=== PATIENT | male | born 1990 | race Caucasian/White ===

== ENCOUNTER 2023-09-20 11:12 | Emergency (ER) | payer OTHER, SELFPAY ==
[2023-09-20 11:14] VITALS: BP 132/82; PULSE 79; RESP 15; TEMP 36.6; O2SAT 97; BMI 27.5
--- NOTE | 2023-09-20 11:20 | ECG_ITS ---
[facility] Test Date: 2023-09-20 Pat Name: Freddy Otto Department: Room: Gender: Male [employer] Agent: : [id number] Requested By: Naomy Rosen Order Number: [id number] Julieta MD: Andrew Pathak M.D. Measurements Intervals [place] Rate: 56 P: 61 TN: 151 QRS: 71 QRSD: 122 T: 72 QT: 402 QTc: 390 Interpretive Statements SINUS BRADYCARDIA MODERATE INTRAVENTRICULAR CONDUCTION DELAY [110+ ms QRS DURATION] INTERPRETATION BASED ON A DEFAULT AGE OF 40 YEARS No previous ECG available for comparison Electronically Signed On 09-20-2023 17:07:15 CDT by Andrew Pathak M.D. [email or web address]
--- NOTE | 2023-09-20 13:08 | XR_ITS ---
WS: [id number] Examination: XR chest 1V [id number] Reason for Exam: shortness of breath Date: September 20, 2023 Comparison: None. Findings: The cardiomediastinal silhouette is within normal limits. There is no effusion or consolidation. Impression: No acute lung process is seen.
--- NOTE | 2023-09-20 13:09 | ED_ITS ---
HPI - Chest Pain 2 General: Chief Complaint: Chest Pain Stated Complaint: Chest Pains Time Seen by Provider: 09/20/23 13:03 History of Present Illness: 33-year-old man with no past medical his tory presents emergency room with chest pain. He says for the last week or 2 has been having intermittent sharp pains in his left chest. These last just for a second or 2. His primary care has retired so he came to the emergency room. He says yesterday he he had an episode where his left arm felt numb and his whole left side of his face and chest felt hot. No fevers. No cough. No altered mental status. No shortness of breath. No lower extremity swelling. He is not tachycardic or hypoxemic on presentation. Review of Systems 2 Narrative: Constitutional symptoms: Negative except as documented in HPI. Skin symptoms: Negative except as documented in HPI. Eye symptoms: Negative except as documented in HPI. ENMT symptoms: Negative except as documented in HPI. Respiratory symptoms: Negative except as documented in HPI. Cardiovascular symptoms: Negative except as documented in HPI. Gastrointestinal symptoms: Negative except as documented in HPI. Genitourinary symptoms: Negative except as documented in HPI. Musculoskeletal symptoms: Negative except as documented in HPI. Neurologic symptoms: Negative except as documented in HPI. Psychiatric symptoms: Negative except as documented in HPI. Endocrine symptoms: Negative except as documented in HPI. Physical Exam 2 Narrative: EXAM NARRATIVE: General: Alert, no acute distress. Skin: Warm, dry. Head: Normocephalic, atraumatic. Neck: Supple, trachea midline. Eye: Extraocular movements are intact. Ears, nose, mouth and throat: mucosa moist. Cardiovascular: Regular, Normal peripheral perfusion. Respiratory: Lungs are clear to auscultation, respirations are non-labored, breath sounds are equal, Symmetrical chest wall expansion. Gastrointestinal: Soft, Nontender, Non distended, Normal bowel sounds. Musculoskeletal: Normal ROM, no deformity. Neurological: Alert and oriented, No focal neurological deficit observed. Psychiatric: Cooperative, appropriate mood & affect. Course 2 Vital Signs: Vital signs: Vital Signs Temperature 97.9 F 09/20/23 11:14 Pulse Rate 79 09/20/23 11:14 Respiratory Rate 15 09/20/23 11:14 Blood Pressure 132/82 09/20/23 11:14 Pulse Oximetry 97 09/20/23 11:14 Oxygen Delivery Me thod Room Air 09/20/23 11:14 MDM - Chest Pain Medical Decision Making Differential diagnosis for patient with chest pain includes but is not limited to and based on the above HPI, review of systems and physical exam: Pneumonia. unstable angina. angina. Acute coronary syndrome / [place]. Pulmonary embolism. Costochondritis / musculoskeletal. Pleurisy. Pericarditis. Esophageal spasm. Pancreatis. Cholecystitis. Workup: Lab work, chest X-ray and EKG ordered to evaluate, rule in and rule out above pathologies. Patient is not hypoxemic nor tachycardic so this is almost definitely not a pulmonary embolism. No history of lower extremity swelling. Lab Review: Laboratory results were reviewed and interpreted by myself the emergency room physician. Lab work is unremarkable. No leukocytosis. No renal failure. Troponin is negative. CRP is not elevated. EK:20 AM rate 56. Sinus bradycardia. Normal sinus rhythm, No ST-T changes, no ectopy, normal IL & QRS intervals, This was reviewed and interpreted by myself the ER physician at 11:25 AM.. Chest x-ray: No acute process. No infiltrate. No pneumothorax. No cardiomegaly. This was reviewed and interpreted by myself the ER physician. Reexamination: Patient remained stable. No increased work of breathing. No altered mental status. No focal motor deficits. No oxygen requirements. Lab Data 09/20/23 13:49 09/20/23 13:49 Laboratory Results WBC 9.42 10^3/uL (3.29-11.43) 09/20/23 13:49 RBC 5.19 10^6/uL (3.85-5.65) 09/20/23 13:49 Hgb 14.80 g/dL (11.27-16.99) 09/20/23 13:49 Hct 45.6 % (37-53) 09/20/23 13:49 MCV 87.9 fl (82-101) 09/20/23 13:49 MCH 28.5 pg (27-33) 09/20/23 13:49 MCHC 32.5 g/dL (30-55) 09/20/23 13:49 RDW 12.6 % (12.1-15.1) 09/20/23 13:49 Plt Count 314 10^3/cmm (157-399) 09/20/23 13:49 MPV 8.8 fL (7.4-10.4) 09/20/23 13:49 Neut % (Auto) 55.3 % 09/20/23 13:49 Lymph % (Auto) 34.5 % 09/20/23 13:49 [place] % (Auto) 6.2 % 09/20/23 13:49 Eos % (Auto) 2.8 % 09/20/23 13:49 Baso % (Auto) 0.7 % 09/20/23 13:49 Neut # (Auto) 5.21 10^3/uL (1.8-7.7) 09/20/23 13:49 Lymph # (Auto) 3.3 10^3/uL (0.8-4.8) 09/20/23 13:49 [place] # (Auto) 0.6 10^3/uL (0.2-0.9) 09/20/23 13:49 Eos # (Auto) 0.3 10^3/uL (0.0-0.8) 09/20/23 13:49 Baso # (Auto) 0.1 10^3/uL (0.0-0.1) 09/20/23 13:49 Nucleated RBC % (auto) 0 % 09/20/23 13:49 Nucleated RBCs # 0.0 /100WBC 09/20/23 13:49 Sodium 138 mmol/L (136-145) 09/20/23 13:49 Potassium 4.3 mmol/L (3.5-5.1) 09/20/23 13:49 Chloride 101 mmol/L (98-107) 09/20/23 13:49 Carbon Dioxide 24 mmol/L (22-29) 09/20/23 13:49 Anion Gap 17.3 (5-19) 09/20/23 13:49 BUN 13 mg/dL (6-20) 09/20/23 13:49 Creatinine 0.8 mg/dL (0.7-1.2) 09/20/23 13:49 GFR Calculation 110.0 mL/min (90-130) 09/20/23 13:49 Glucose 84 mg/dL (65-115) 09/20/23 13:49 Calculated Osmolality 285 mOsm/kg (285-295) 09/20/23 13:49 Calcium 9.3 mg/dL (8.5-10.5) 09/20/23 13:49 Total Bilirubin 0.6 mg/dL (0.15-1.2) 09/20/23 13:49 AST 13 U/L (0-40) 09/20/23 13:49 ALT 10 U/L (0-41) 09/20/23 13:49 Alkaline Phosphatase 63 U/L (40-130) 09/20/23 13:49 Troponin T Baseline < 6 ng/L (0-15) 09/20/23 13:49 C-Reactive Protein 3.0 mg/L (0.0-4.9) 09/20/23 13:49 Total Protein 7.3 g/dL (6.6-8.7) 09/20/23 13:49 Albumin 4.5 g/dL (3.5-5.2) 09/20/23 13:49 Globulin 2.8 g/dL (1.3-4.6) 09/20/23 13:49 All radiology interpretation(s) finalized by discharge ED provider radiology interpretation(s): Assessment and plan: - Discharged home - Discussed findings and plan with patient. Answered any questions. - All laboratory values were reviewed and interpreted personally by myself, the ER physician - All imaging was reviewed and interpreted personally by myself, the ER physician. - Evaluation and treatment of this problem were appropriate in the emergency setting Discharge Plan Discharge Patient Disposition: Home Clinical Impression: Chest pain, non-cardiac Condition: Stable Prescriptions: New diclofenac potassium 50 mg tablet 50 mg PO BID PRN (Reason: pain) Qty: 20 0RF Medrol 8 mg tablet 8 mg PO DAILY Qty: 5 0RF Discharge Orders: Discharge ED (Routine); Ordered 09/20/23 Ordered By: Naomy Soni Discharge Diet: Usual diet Discharge Activity: Resume usual activity Patient Instructions: Noncardiac Chest Pain (ED) Activity Restrictions/Additional Instructions: You have been screened and evaluated and felt safe for discharge. Health conditions do change or evolve sometimes and as such it is important that you follow up with your Primary Doctor to be re checked, 3-5 days is a general good time frame for follow up. You are always welcome to return to the ED for re assessment if your symptoms are worsening or you have new concerns Coding Level of Care Code ED [facility] for [facility] Fwd
--- NOTE | 2023-09-20 13:22 | PC.PHAR ---
pt states takes no rx or otc medications
[2023-09-20 14:15] LABS: Basophils # 0.1 10^3/uL (0.0-0.1); Basophils % 0.7 %; Eosinophils # 0.3 10^3/uL (0.0-0.8); Eosinophils % 2.8 %; Hematocrit 45.6 % (37-53); Lymphocytes # 3.3 10^3/uL (0.8-4.8); Lymphocytes % 34.5 %; Mean Corpuscular HGB Conc 32.5 g/dL (30-55); Mean Corpuscular Hemoglobin 28.5 pg (27-33); Mean Corpuscular Volume 87.9 fl (82-101); Mean Platelet Volume 8.8 fL (7.4-10.4); Monocytes # 0.6 10^3/uL (0.2-0.9); Monocytes % 6.2 %; Neutrophils # 5.21 10^3/uL (1.8-7.7); Neutrophils % 55.3 %; Nucleated Red Blood Cells % 0 %; Platelet Count 314 10^3/cmm (157-399); Red Blood Count 5.19 10^6/uL (3.85-5.65); Red Cell Distribution Width 12.6 % (12.1-15.1); White Blood Count 9.42 10^3/uL (3.29-11.43)
[2023-09-20 14:34] LABS: Troponin(5th) Baseline < 6 ng/L (0-15)
[2023-09-20 14:36] LABS: Alanine Aminotransferase 10 U/L (0-41); Albumin Level 4.5 g/dL (3.5-5.2); Alkaline Phosphatase 63 U/L (40-130); Anion Gap 17.3 (5-19); Aspartate Amino Transferase 13 U/L (0-40); Blood Urea Nitrogen 13 mg/dL (6-20); Calcium 9.3 mg/dL (8.5-10.5); Carbon Dioxide 24 mmol/L (22-29); Chloride 101 mmol/L (98-107); Creatinine Clr Calc Pharmacy 165.1854; Globulin 2.8 g/dL (1.3-4.6); Glucose 84 mg/dL (65-115); Osmolality Calculated 285 mOsm/kg (285-295); Potassium 4.3 mmol/L (3.5-5.1); Sodium 138 mmol/L (136-145); Total Bilirubin 0.6 mg/dL (0.15-1.2); Total Protein 7.3 g/dL (6.6-8.7)
[2023-09-20 15:12] VITALS: PULSE 80; RESP 16; O2SAT 98
== END 2023-09-20 15:13 | disposition home or self-care (01) ==
PROVIDERS: Emergency Provider Emergency Medicine
DX: R07.89 Other chest pain (principal)
CPT/HCPCS: 36415; 71045; 80053; 84484; 85025; 86140; 93005; 99285

== ENCOUNTER → 2024-12-03 15:45 | Outpatient (BNVA) | payer BC, SELFPAY | PROVIDERS: PCP Family Medicine; Visit Provider Family Medicine | DX: Z00.00 Encounter for general adult medical examination without abnormal findings (principal); R07.89 Other chest pain; E03.9 Hypothyroidism, unspecified | CPT/HCPCS: 80053; 80061; 82607; 84443; 85025 ==